=== PATIENT | male | born 1990 | race Caucasian/White ===

== ENCOUNTER 2018-05-13 15:33 | Emergency (ER) | payer MEDICAID ==
[~2018-05-13] VITALS: Ht 190.5 cm; Wt 102.1 kg
[2018-05-13 15:42] VITALS: BP_SYST 140
[2018-05-13 16:01] VITALS: BP_SYST 140
== END 2018-05-13 15:59 | disposition home or self-care (01) ==
LOC: SED 15:33
DX: F41.8 Other specified anxiety disorders (principal); Z76.0 Encounter for issue of repeat prescription; F31.9 Bipolar disorder, unspecified
CPT/HCPCS: 99283